=== PATIENT | male | born 1950 | race Caucasian/White ===

== ENCOUNTER 2023-11-22 10:29 | Emergency (ER) | payer MEDICARE, SELFPAY ==
[2023-11-22 10:35] VITALS: BP 139/69
--- NOTE | 2023-11-22 10:55 | ED.GENMED ---
History of Present Illness
<Ryan Brizuela PA-C - Last Filed: 11/22/23 10:58>
General
Chief Complaint: Urinary Symptoms
Source: patient
Exam Limitations: none
Time Seen by Provider: 11/22/23 10:42
Travel History
Have you had any contact with someone who has COVID-19?: No
Do you have any symptoms of coronavirus? Fever > 100 degrees, chills, cough, shortness of breath, sore throat, loss of taste or smell, muscle aches, or headache?: No
History of Present Illness
History of Present Illness:
73-year-old male presents complaining of fatigue. Yesterday had urinary symptoms including dysuria increased frequency. No fever. But developed nausea and vomiting yesterday. He started Bactrim after seeing urgent care and thought to have UTI.
No abdominal pain. He notes some loose stool. He denies chest pain cough or shortness of breath. No measurable fever. He states the dysuria has resolved. No other complaints at this time
Phy Exam
<Ryan Brizuela PA-C - Last Filed: 11/22/23 10:58>
Physical Exam
Physical Exam:
General: Well-appearing male nontoxic no acute respiratory distress
HEENT: Normocephalic atraumatic
Heart: Regular rate and rhythm no murmurs
Lungs: Clear to auscultation bilaterally no wheezing abdomen is soft nondistended nontender no guarding or rebound normal bowel sounds
Extremities: No cyanosis or edema
Course
<Ryan Brizuela PA-C - Last Filed: 11/22/23 10:58>
Orders/Labs/Results
Orders:
Orders
11/22/23 11:19
Complete Blood Count/With Diff Urgent
Comprehensive Metabolic Panel Urgent
Urinalysis Reflex To Culture Urgent
Date Specimen was Collected: 11/22/23
Time Specimen was Collected: 10:56
Urine Microscopic Reflex Cult Urgent
11/22/23 12:22
0.9% Sodium Chloride 1000 ml [Nss] 1,000 ml IV BOLUS
Ondansetron Injectable [Zofran] 4 mg IV NOW STA
11/22/23 12:30
CT Abd/Pel (IV only)-DH only Urgent
Comment: concern for obstructing kidney stone
Reason For Exam: nausea, abd pain, burning with urination, neg U/A
Abnormal Lab Results
11/22/23
11:19
Absolute Neuts (auto) 8.5 H 10^3/uL
(1.4-6.5)
Absolute Lymphs (auto) 0.2 L 10^3/uL
(1.2-3.4)
Neutrophils % 93.8 H %
(42.2-75.2)
Lymphocytes % 2.1 L %
(20.5-51.1)
Sodium 134 L mmol/L
(135-145)
BUN 29 H mg/dl
(9-20)
Glucose 124 H mg/dl
(70-99)
Total Bilirubin 1.6 H mg/dl
(0.2-1.3)
Urine Ketones 1+ A
(Negative)
Ur Occult Blood Reflex 1+ A
(Negative)
Urine Bilirubin 1+ A
(Negative)
Leukocyte Esterase Rfl Trace A
(Negative)
11/22/23 11:19
11/22/23 11:19
Vital Signs
Initial and Last Documented VS:
Initial Vital Signs
Temp Pulse Resp BP Pulse Ox
99.1 F 85 16 139/69 98
11/22/23 10:35 11/22/23 10:35 11/22/23 10:35 11/22/23 10:35 11/22/23 10:35
Last Documented Vital Signs
Temp Pulse Resp BP Pulse Ox
99.1 F 78 18 142/80 98
11/22/23 10:35 11/22/23 14:47 11/22/23 14:47 11/22/23 14:47 11/22/23 14:47
<Hemanth Huerta MD - Last Filed: 11/22/23 13:41>
Orders/Labs/Results
Orders:
Orders
11/22/23 11:19
Complete Blood Count/With Diff Urgent
Comprehensive Metabolic Panel Urgent
Urinalysis Reflex To Culture Urgent
Date Specimen was Collected: 11/22/23
Time Specimen was Collected: 10:56
Urine Microscopic Reflex Cult Urgent
11/22/23 12:22
0.9% Sodium Chloride 1000 ml [Nss] 1,000 ml IV BOLUS
Ondansetron Injectable [Zofran] 4 mg IV NOW STA
11/22/23 12:30
CT Abd/Pel (IV only)-[facility] only Urgent
Comment: concern for obstructing kidney stone
Reason For Exam: nausea, abd pain, burning with urination, neg U/A
Abnormal Lab Results
11/22/23
11:19
Absolute Neuts (auto) 8.5 H 10^3/uL
(1.4-6.5)
Absolute Lymphs (auto) 0.2 L 10^3/uL
(1.2-3.4)
Neutrophils % 93.8 H %
(42.2-75.2)
Lymphocytes % 2.1 L %
(20.5-51.1)
Sodium 134 L mmol/L
(135-145)
BUN 29 H mg/dl
(9-20)
Glucose 124 H mg/dl
(70-99)
Total Bilirubin 1.6 H mg/dl
(0.2-1.3)
Urine Ketones 1+ A
(Negative)
Ur Occult Blood Reflex 1+ A
(Negative)
Urine Bilirubin 1+ A
(Negative)
Leukocyte Esterase Rfl Trace A
(Negative)
11/22/23 11:19
11/22/23 11:19
Vital Signs
Initial and Last Documented VS:
Initial Vital Signs
Temp Pulse Resp BP Pulse Ox
99.1 F 85 16 139/69 98
11/22/23 10:35 11/22/23 10:35 11/22/23 10:35 11/22/23 10:35 11/22/23 10:35
Last Documented Vital Signs
Temp Pulse Resp BP Pulse Ox
99.1 F 78 18 142/80 98
11/22/23 10:35 11/22/23 14:47 11/22/23 14:47 11/22/23 14:47 11/22/23 14:47
<Brunilda Christine, [employer]AD[employer]ATIONS TECHNICIAN - Last Filed: 11/22/23 16:53>
Orders/Labs/Results
Orders:
Orders
11/22/23 11:19
Complete Blood Count/With Diff Urgent
Comprehensive Metabolic Panel Urgent
Urinalysis Reflex To Culture Urgent
Date Specimen was Collected: 11/22/23
Time Specimen was Collected: 10:56
Urine Microscopic Reflex Cult Urgent
11/22/23 12:22
0.9% Sodium Chloride 1000 ml [Nss] 1,000 ml IV BOLUS
Ondansetron Injectable [Zofran] 4 mg IV NOW STA
11/22/23 12:30
CT Abd/Pel (IV only)-[facility] only Urgent
Comment: concern for obstructing kidney stone
Reason For Exam: nausea, abd pain, burning with urination, neg U/A
Abnormal Lab Results
11/22/23
11:19
Absolute Neuts (auto) 8.5 H 10^3/uL
(1.4-6.5)
Absolute Lymphs (auto) 0.2 L 10^3/uL
(1.2-3.4)
Neutrophils % 93.8 H %
(42.2-75.2)
Lymphocytes % 2.1 L %
(20.5-51.1)
Sodium 134 L mmol/L
(135-145)
BUN 29 H mg/dl
(9-20)
Glucose 124 H mg/dl
(70-99)
Total Bilirubin 1.6 H mg/dl
(0.2-1.3)
Urine Ketones 1+ A
(Negative)
Ur Occult Blood Reflex 1+ A
(Negative)
Urine Bilirubin 1+ A
(Negative)
Leukocyte Esterase Rfl Trace A
(Negative)
11/22/23 11:19
11/22/23 11:19
Vital Signs
Initial and Last Documented VS:
Initial Vital Signs
Temp Pulse Resp BP Pulse Ox
99.1 F 85 16 139/69 98
11/22/23 10:35 11/22/23 10:35 11/22/23 10:35 11/22/23 10:35 11/22/23 10:35
Last Documented Vital Signs
Temp Pulse Resp BP Pulse Ox
99.1 F 78 18 142/80 98
11/22/23 10:35 11/22/23 14:47 11/22/23 14:47 11/22/23 14:47 11/22/23 14:47
<Ryan Brizuela PA-C - Last Filed: 11/22/23 10:58>
MDM/Problems Addressed
Differential Diagnosis Includes:
Urinary symptom with nausea and fatigue. Will check labs and recheck urinalysis. Abdomen exam is benign. Consider UTI versus pyelonephritis versus viral illness
<Brunilda Christine NP - Last Filed: 11/22/23 16:53>
MDM/Problems Addressed
MDM/Problems Addressed:
11:30 AM
Assumed care of patient from [facility]
73-year-old male presents complaining of fatigue. Yesterday had urinary symptoms including dysuria increased frequency. No fever. But developed nausea and vomiting yesterday. He started Bactrim after seeing urgent care and thought to have UTI.
No abdominal pain. He notes some loose stool. He denies chest pain cough or shortness of breath. No measurable fever. He states the dysuria has resolved. No other complaints at this time
Afebrile
Patient mildly nauseous, no significant abdominal pain
Dr. Huerta in to evaluate and agrees with CT abdomen pelvis
CBC with no clinically significant abnormality
CMP: BUN 29 otherwise no clinically significant abnormality. IV fluids for dehydration
UA: No sign of infection. Since patient had chills last p.m., has been on Bactrim, urine culture sent
2:12 PM
CAT scan abdomen pelvis with IV contrast: Radiology report read: IMPRESSION:
1. Severe diverticulosis in the sigmoid colon.
2. Mild to moderate enlargement of the prostate gland with suggestion of mild chronic urinary bladder outlet obstruction.
3. Mild chronic bilateral renal disease.
4. Mild hepatomegaly and mild diffuse hepatic steatosis.
5. Moderate to severe atherosclerotic plaque in the abdominal aorta.
6. Small hiatal hernia.
7. 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
IV fluids infused
Plan: Continue the antibiotic, take with milk or food to avoid nausea. Urine culture pending.
Has prescheduled appointment with PCP in 3 weeks.
Pt denies abdominal pain, nausea.
Pt is stable for discharge
Pt ambulated out with normal gait.
<Brunilda Christine NP - Last Filed: 11/22/23 16:53>
*Critical Care Note
Total Time (30-74mins, 75-104mins- exclusive of procedures): Not Applicable
ED Attending Note
<Ryan Brizuela PA-C - Last Filed: 11/22/23 10:58>
-
Portions of this chart may have been created with voice recognition software.� Occasional wrong word or��sound alike� substitutions may have occurred due to the inherent limitations of voice recognition software.
<Hemanth Huerta MD - Last Filed: 11/22/23 13:41>
ED Attending Note
Patient seen and examined by attending physician: Yes
I performed the substantive portion of visit, reviewed & personally made and approve the management plan that is documented in note by myself or KEIRY.: Yes
ED Attending Note:
73-year-old male started with dysuria yesterday. Seen at urgent care and diagnosed with UTI despite a negative urine. Placed on Bactrim. Had some increased chills overnight and is worried about sepsis. Feels generally weak. No other specific
complaints. Had recent cold and bronchitis however this all resolved after course of antibiotics.
GENERAL: Alert and oriented in no apparent distress
EYE: Orbits normal.
NECK: Supple
CARDIAC: Regular rate and rhythm without any obvious murmurs.
LUNGS: Clear breath sounds,normal
ABDOMEN: Soft, without focal tenderness or distention. No CVA tenderness
NEUROLOGICAL: Alert and oriented , grossly non-focal
SKIN: Warm and dry, no rash or lesion, no discoloration, skin intact.
MUSCULOSKELETAL: No edema,no deformity.Good color
PSYCH: Normal and appropriate interaction.
Urinary like symptoms with a negative urinalysis. To consider kidney stone pyelonephritis prostatitis. Labs are stable urine is negative. CT pending.
Discharge Plan
Departure
Patient Disposition: Home (Routine Discharge)
Date of Disposition: 11/22/23
Time of Disposition: 14:13
Patient with high blood pressure during this ER visit?: No
Condition: Good
Discharge Problem:
Fatigue, Nausea
Instructions: Fatigue (DC)
Referrals:
Jerry Kelly MD [Family Provider] - Call in 1-3 days for appt
Activity Restrictions/Additional Instructions:
As we discussed, your workup here today shows nothing worrisome. You were mildly dehydrated and were given IV fluids.
Your urinalysis here today shows no infection, the urine culture is pending. Continue the antibiotic. Take the Bactrim with milk or food if it upsets your stomach.
Interventions
Interventions:
*Risk Screen - Suicide Last Done: 11/22/23 11:51
*Neglect/Abuse Screening Last Done: 11/22/23 11:51
*ED COVID-19 Vaccine History Last Done: 11/22/23 10:35
*Nursing Disposition Last Done: 11/22/23 14:48
ED-Male Genitourinary Assessment Last Done: 11/22/23 11:51
Discharge Date and Time
Discharge Date/Time: 11/22/23 14:50
Print Language: HUNGARIAN
[2023-11-22 11:21] VITALS: BMI 31.2
[2023-11-22 11:29] LABS: Urine Albumin Trace (Neg - Trace); Urine Bilirubin 1+ (Negative); Urine Character Clear (Clear); Urine Color Yellow; Urine Glucose Negative (Negative); Urine Ketone 1+ (Negative); Urine Leukocyte Trace (Negative); Urine Nitrite Negative (Negative); Urine Occult Blood 1+ (Negative); Urine Urobilinogen 1+ (Neg - 1+)
[2023-11-22 11:30] LABS: % Basophils 0.2 % (0-2); % Eosinophils 0.3 % (0-6); % Immature Granulocytes 0.4 % (0-0.5); % Lymphocytes 2.1 % (20.5-51.1); % Monocytes 3.2 % (1.7-9.3); % Neutrophils 93.8 % (42.2-75.2); Absolute Lymphocytes 0.2 10^3/uL (1.2-3.4); Absolute Monocytes 0.3 10^3/uL (0.1-0.6); Absolute Neutrophils 8.5 10^3/uL (1.4-6.5); Hematocrit 43.5 % (39.0-52.0); Hemoglobin 15.2 g/dL (13.0-18.0); Mean Corp Hgb Conc. 34.9 g/dL (33.0-37.0); Mean Corpuscular Hgb 30.9 pg (27.0-31.0); Mean Corpuscular Volume 88.4 fL (80.0-94.0); Mean Platelet Volume 8.9 fL (7.4-10.4); Nucleated Red Blood Cells % 0 % (-); Platelet Count 179 10^3/uL (130-400); Red Blood Cell Count 4.92 10^6/uL (4.70-6.10); Red Cell Dist. Width 13.7 % (11.5-14.5); White Blood Cell Count 9.1 10^3/uL (4.8-10.8)
[2023-11-22 11:39] LABS: Urine Red Blood Cell 0-2 /HPF (0-2); Urine White Cell 0-2 /HPF (0-5)
[2023-11-22 11:55] LABS: ALT (SGPT) 27 U/L (0-50); AST (SGOT) 22 U/L (17-59); Albumin 3.9 g/dl (3.5-5.0); Alkaline Phosphatase 64 U/L (38-126); Blood Urea Nitrogen 29 mg/dl (9-20); Calcium 8.6 mg/dl (8.4-10.2); Carbon Dioxide 23 mmol/L (22-30); Chloride 103 mmol/L (98-107); Estimated Creatinine Clearance 51 ml/min; Glucose 124 mg/dl (70-99); Potassium 4.2 mmol/L (3.5-5.1); Sodium 134 mmol/L (135-145); Total Bilirubin 1.6 mg/dl (0.2-1.3); Total Protein 6.3 g/dl (6.3-8.2); eGFR 57.29
[2023-11-22] MEDS: ZOFRAN 4 MG IV (12:26)
[2023-11-22] MEDS: NSS 1000 IV (12:27)
[2023-11-22 14:47] VITALS: BP 142/80
== END 2023-11-22 14:50 | disposition home or self-care (01) ==
LOC: EMR 10:29
PROVIDERS: Physician Assistant; EMERGENCY PHYSICIAN Emergency Medicine; FAMILY PHYSICIAN Family Medicine
DX: R11.2 Nausea with vomiting, unspecified (principal); R53.83 Other fatigue
CPT/HCPCS: 99285; 96374; 96361; 74177; 80053; 81003; 81015; 85025; Q9967